=== PATIENT | female | born 1940 | race Caucasian/White ===

== ENCOUNTER 2023-10-12 07:48 | Emergency (ER) | payer MEDICARE ==
[~2023-10-12] VITALS: Ht 157.5 cm; Wt 63.5 kg
[2023-10-12 07:54] VITALS: TEMP 99.6
[2023-10-12 08:12] LABS: BASOPHILS % 0.1 % (0.0-1.0); EOSINOPHILS # (AUTO) 0.4 (0.0-0.4); EOSINOPHILS % 5.4 % (0.0-6.0); HEMATOCRIT 37.5 % (34.2-44.1); HEMOGLOBIN 11.9 g/dL (12.0-16.0); LYMPHOCYTES # (AUTO) 0.8 (1.0-3.2); LYMPHOCYTES % 10.3 % (18.0-39.1); MEAN CORPUSCULAR HEMOGLOBIN 29.4 pg (28-32); MEAN CORPUSCULAR HGB CONC 31.7 g/dL (31-35); MEAN CORPUSCULAR VOLUME 92.6 fL (81-99); MONOCYTES # (AUTO) 0.6 (0.2-0.8); MONOCYTES % 7.9 % (4.4-11.3); NEUTROPHILS # (AUTO) 5.7 (2.1-6.9); PLATELET COUNT 255 x10e3/uL (140-360); RED BLOOD COUNT 4.05 x10e6/uL (3.6-5.1); RED CELL DISTRIBUTION WIDTH 13.6 % (11.7-14.4); WHITE BLOOD COUNT 7.56 x10e3/uL (4.8-10.8)
[2023-10-12] MEDS: MECLIZINE HCL 12.5 MG TAB PO ONE (08:31)
[2023-10-12] MEDS: SODIUM CHLORIDE 0.9% 1000ML 1,000 ML IV STA (08:31)
[2023-10-12 09:03] LABS: ALBUMIN 3.5 g/dL (3.5-5.0); BILIRUBIN,TOTAL 0.3 mg/dL (0.2-1.2); CALCIUM 9.9 mg/dL (8.4-10.2); CREATININE, SERUM 0.8 mg/dL (0.57-1.11); TOTAL PROTEIN 7.1 g/dL (6.5-8.1)
[2023-10-12 09:13] LABS: TROPONIN I 0.01 ng/mL (0-0.300)
[2023-10-12 09:15] VITALS: PULSE 83; RESP 14
[2023-10-12] MEDS ORDERED: MECLIZINE HCL12.5 MG PO (09:35)
[2023-10-12 10:00] VITALS: BP 151/89; PULSE 86; RESP 16; O2SAT 97
== END 2023-10-12 10:00 | disposition home or self-care (01) ==
LOC: ER 07:53
DX: R00.2 Palpitations (principal); R42 Dizziness and giddiness; I10 Essential (primary) hypertension; F41.9 Anxiety disorder, unspecified; F32.A Depression, unspecified; M81.0 Age-related osteoporosis without current pathological fracture; Z11.52 Encounter for screening for COVID-19
CPT/HCPCS: 36415; 70450; 71045; 80053; 83735; 84484; 85025; 93005; 99284; J7030; J8597; U0002

== ENCOUNTER 2024-03-09 09:08 | Emergency (ER) | payer MEDICARE ==
[~2024-03-09] VITALS: Ht 157.5 cm; Wt 59.9 kg
[~2024-03-09 09:08] MED LIST: MECLIZINE HCL12.5 MG PO
[2024-03-09 09:25] VITALS: PULSE 76; RESP 14; TEMP 97.6
[2024-03-09] MEDS: TRAMADOL HCL 50 MG TAB PO ONE (09:50)
[2024-03-09 13:36] VITALS: BP 131/73; PULSE 78; RESP 16; O2SAT 100
== END 2024-03-09 13:00 | disposition home or self-care (01) ==
LOC: ER 09:29
DX: S70.01XA Contusion of right hip, initial encounter (principal); W01.0XXA Fall on same level from slipping, tripping and stumbling without subsequent striking against object, initial encounter; Y93.01 Activity, walking, marching and hiking; Y92.89 Other specified places as the place of occurrence of the external cause; I10 Essential (primary) hypertension; R20.2 Paresthesia of skin; F41.9 Anxiety disorder, unspecified; F32.A Depression, unspecified; M81.0 Age-related osteoporosis without current pathological fracture
CPT/HCPCS: 99283

== ENCOUNTER 2024-03-25 09:11 | Emergency (ER) | payer MEDICARE ==
[~2024-03-25] VITALS: Ht 157.5 cm; Wt 59.9 kg
[2024-03-25 09:20] VITALS: PULSE 73; RESP 15; TEMP 98.3; O2SAT 100
[2024-03-25] MEDS ORDERED: NEURONTIN100 MG PO (12:04)
== END 2024-03-25 12:35 | disposition home or self-care (01) ==
LOC: ER 09:19
DX: M54.32 Sciatica, left side (principal); I10 Essential (primary) hypertension; F41.9 Anxiety disorder, unspecified; F32.A Depression, unspecified; M81.0 Age-related osteoporosis without current pathological fracture
CPT/HCPCS: 99284